=== PATIENT | female | born 1960 | race Caucasian/White ===

== ENCOUNTER 2024-10-31 12:52 | Emergency (ER) | payer SELFPAY ==
[2024-10-31] VITALS (7 sets, daily range): BP systolic 96–120; BP diastolic 55–67; PULSE 60–66; RESP 13–29; TEMP 36.8; O2SAT 96–100; BMI 18.8
--- NOTE | 2024-10-31 12:48 | ECG_ITS ---
APPROVED REPORT Exam: Resting ECG HR:55 bpm ECG Measurements Heart Rate 55 AXES AL 148 P 84 QRSd 89 QRS 83 QT 441 T 66 QTc 430 Conclusion SINUS BRADYCARDIA RIGHT ATRIAL ENLARGEMENT [0.3mV P-WAVE] LEFT ATRIAL ENLARGEMENT [-0.15mV P-WAVE IN V1/V2] POSSIBLE RIGHT VENTRICULAR CONDUCTION DELAY [RSR (QR) IN V1/V2] ABNORMAL ECG UNCONFIRMED REPORT Electronically signed by : Devon Camp, 11/01/2024 15:33:20
--- NOTE | 2024-10-31 12:55 | XR_ITS ---
PROCEDURE INFORMATION: Exam: XR Chest Exam date and time: 10/31/2024 1:08 PM Age: 64 years old Clinical indication: Pain; Chest pressure; Additional info: Chest pain, pre-syncopal episode TECHNIQUE: Imaging protocol: Radiologic exam of the chest. Views: 1 view. COMPARISON: No relevant prior studies available. FINDINGS: Lungs: No consolidation or lung nodules. Bilateral nipple shadows are suspected. Calcified granuloma in the left lower lung. Pleural spaces: No pleural effusion. No pneumothorax. Heart/Mediastinum: No abnormalities. No cardiomegaly. No pulmonary vascular congestion. Bones/joints: No fractures or bone lesions. IMPRESSION: 1. Bilateral nipple shadows are suspected. PA chest x-ray with nipple markers is suggested. 2. No other acute findings in the chest.
--- NOTE | 2024-10-31 13:02 | PC.NURSE ---
Blood glucose 203 at 1302
[2024-10-31 13:07] LABS: Basophils % 0.4 % (0.1-2.0); Eosinophils % 0.6 % (0.1-12.0); Hematocrit 40.2 % (37.0-47.0); Hemoglobin 13.5 g/dL (12.2-16.2); Lymphocytes # 0.9 K/mm3 (0.7-4.5); Lymphocytes % 13.2 % (10-50); Mean Corpuscular HGB Conc 33.6 g/dL (31.8-35.4); Mean Corpuscular Hemoglobin 31.2 pg (27.0-31.2); Mean Corpuscular Volume 92.8 fl (81-99); Mean Platelet Volume 11.5 fl (7.4-10.4); Monocytes # 0.4 K/mm3 (0.1-1.0); Monocytes % 6.6 % (1.7-9.3); Neutrophils # 5.3 K/mm3 (1.8-7.8); Neutrophils % 78.9 % (37.0-80.0); Platelet Count 121 K/mm3 (142-424); Red Blood Count 4.33 M/mm3 (4.20-5.40); White Blood Count 6.7 K/mm3 (4.8-10.8)
[2024-10-31 13:11] LABS: Chloride 104 mmol/L (98-107); Potassium 3.6 mmoL/L (3.5-5.1); Sodium 136 mmol/L (136-145)
[2024-10-31 13:14] LABS: Alanine Aminotransferase 38 U/L (12-78); Albumin/Globulin Ratio 1.8 (1.1-1.8); Alkaline Phosphatase 66 U/L (38-126); Anion Gap 6.6 mEq/L (5-15); Aspartate Amino Transferase 52 U/L (14-36); Bilirubin,Total 0.4 mg/dl (0.2-1.3); Blood Urea Nitrogen 26 mg/dl (7-17); Calcium 9.5 mg/dl (8.4-10.2); Carbon Dioxide 29 mmol/L (22.0-30.0); Creatinine Clearance Estimated 45 mL/min (50-200); Estimated Glomerular Filt Rate 72 ml/min (>60); GFR (African American) 87 ML/MIN (>60); Globulin 2.2 g/dL (1.3-3.2); Glucose 161 mg/dl (74-100); Magnesium 2.3 mg/dl (1.6-2.3); Total Protein,Serum 6.2 g/dl (6.3-8.2)
[2024-10-31 13:27] LABS: Troponin I < 0.01 ng/ml (0.00-0.034)
[2024-10-31 14:02] LABS: D-Dimer 0.83 ug/mL (0.0-0.5)
[2024-10-31 14:18] LABS: HIV Combo NEGATIVE (Negative)
[2024-10-31 15:58] LABS: Troponin I < 0.01 ng/ml (0.00-0.034)
--- NOTE | 2024-10-31 18:18 | ED_ITS ---
<Statement entered by Rj Camp MD - 11/01/24 15:27> I was consulted by the CHAYO, and we discussed the complexity of the problems being addressed. I approved the treatment and management plan for this patient's care in the emergency department, thus performing a substantive portion of the medical decision making. Rj Camp MD, CATY, FACEP Discharge Plan Disposition Patient Disposition: Home, Self-Care Condition: Good Prescriptions Prescriptions: No Action aspirin 81 mg Tablet 81 mg PO DAILY Referrals Follow up/Referrals: Mario Mir MD [Staff Physician] - See instructions Jorge L Pimentel MD [Primary Care Provider] - See instructions Activity Restrictions/Add. Instructions Additional Instructions/Restrictions: You were seen for chest pain. Please call cardiology to schedule an appointment for for further workup. You had some abnormal imaging around the nipple area. I would advise follow up with your PCP for additional imaging. Clinical Impressions Clinical Impression: Chest pain Instructions Patient Instructions: DI for Chest Pain Print Language Print Language: Kyr[place]z Discharge ED Provider: Rj Camp [facility] General Chief Complaint: Chest Pain Stated Complaint: chest pain Time Seen by Provider: 10/31/24 12:54 Mode of Arrival: Family Vehicle Source of Information: Patient and EMS Limitations: No Limitations Description of Symptoms (Recalled from ER Triage Doc. by RN): Pt c/o intermittent mid-sternal sharp chest pain and near syncopal episode while sitting during jehovah's witness this AM. Denies any significant PMH. No prior surgery. Denies any dizziness or light-headedness. EMS was called to see pt in route to ER. Per EMS pt's HR was 50s and no ST elevation was noted. FS 203. Pt is not a diabetic History of Present Illness HPI narrative: Patient presents complaining of central chest pressure that started around 1130 this morning. She reports that her pain has improved, lasting 10 to 15-minutes. Denies any shortness of breath, cough, nausea vomiting. Denies any fever. She reports that she was sitting at jehovah's witness at the onset of pain. complaint: chest pain Onset (ago): unknown (11:30) Duration: other (15 min) Activity at onset: during rest Pain location: substernal Severity: moderate Quality: other (pressure ) Pain radiation: none Relieving factors: nothing Exacerbating factors: nothing Context: recent travel Treatments prior to or on arrival for Cardiac Chest Pain: none Related Data Home Medications ?Medication ?Instructions ?Recorded ?Confirmed aspirin 81 mg tablet 81 mg PO DAILY 10/31/24 10/31/24 Allergies Allergy/AdvReac Type Severity Reaction Status Date / Time Penicillins Allergy Unknown Verified 10/31/24 12:55 allergy reaction [facility] Disclaimer: The information contained in this section may have been updated after the patient was seen, as this information can be updated by other users. Social History Smoking Status: Never smoker alcohol intake: never current occupational status: other Travel in the last 8 weeks: Inside the [place] ROS Obtained: Yes Systems reviewed as appropriate & no additional complaints except as documented Physical Exam General General appearance: alert and in no apparent distress Head Head exam: atraumatic and normocephalic Eye Eye exam: Present normal appearance and EOMI Chest Chest inspection: Present symmetric chest wall rise Respiratory Respiratory exam: Present normal lung sounds bilaterally; Absent wheezes or stridor Cardiovascular Cardiovascular exam: Present regular rate and normal rhythm; Absent systolic murmur Abdominal Exam Abdominal exam: Present soft; Absent distention or tenderness Neurological Exam Neurological exam: Present alert and oriented X3 Psychiatric Psychiatric exam: Present normal affect and normal mood Skin Skin exam: Present warm, dry and intact HEART Score HEART Score HEART Score assessment performed?: No History (anamnesis): Slightly suspicious ECG: Normal Age: 45-65 years Risk factors: No known risk factors Troponin: </= normal limit HEART Score: 1 Critical Care Critical Care Time Critical Care Time: No Medical Decision Making Kris Inquiry Pt receiving controlled substance: No Vital Signs Vital Signs: 10/31/24 12:53 10/31/24 13:00 10/31/24 13:15 Temperature 98.2 F Temperature Source Oral Pulse Rate 61 66 Pulse Rate [Right] 60 Respiratory Rate 16 18 29 H Blood Pressure 102/62 L 97/55 L Blood Pressure [Right Arm] 120/67 Blood Pressure Mean [Right Arm] 84 Blood Pressure Source Blood Pressure Source [Right Arm] Automatic Cuff Blood Pressure Position 02 Sat by Pulse Oximetry 99 99 100 Oxygen Delivery Method Room Air Room Air 10/31/24 14:00 10/31/24 14:30 10/31/24 15:00 Temperature Temperature Source Pulse Rate 63 62 60 Pulse Rate [Right] Respiratory Rate 16 16 13 Blood Pressure 96/62 L 101/65 L 108/63 L Blood Pressure [Right Arm] Blood Pressure Mean [Right Arm] Blood Pressure Source Blood Pressure Source [Right Arm] Blood Pressure Position 02 Sat by Pulse Oximetry 97 97 96 Oxygen Delivery Method Room Air Room Air Room Air 10/31/24 16:48 Temperature 98.2 F Temperature Source Oral Pulse Rate 63 Pulse Rate [Right] Respiratory Rate 16 Blood Pressure 114/66 Blood Pressure [Right Arm] Blood Pressure Mean [Right Arm] Blood Pressure Source Automatic Cuff Blood Pressure Source [Right Arm] Blood Pressure Position Sitting 02 Sat by Pulse Oximetry Oxygen Delivery Method Room Air Lab Data Labs: Lab Results 10/31/24 12:55: WBC 6.7, RBC 4.33, Hgb 13.5, Hct 40.2, MCV 92.8, MCH 31.2, MCHC 33.6, RDW 13.0, Plt Count 121 L, MPV 11.5 H, Neut % (Auto) 78.9, Lymph % (Auto) 13.2, [place] % (Auto) 6.6, Eos % (Auto) 0.6, Baso % (Auto) 0.4, Neut # (Auto) 5.3, Lymph # (Auto) 0.9, [place] # (Auto) 0.4, Eos # (Auto) 0.0, Baso # (Auto) 0.0, D- Dimer 0.83 H, Sodium 136, Potassium 3.6, Chloride 104, Carbon Dioxide 29, Anion Gap 6.6, BUN 26 H, Creatinine 0.80, Estimated Creat Clear 45, Estimated GFR 72, Est GFR ( Amer) 87, Glucose 161 H, Calcium 9.5, Magnesium 2.3, Total Bilirubin 0.4, AST 52 H, ALT 38, Alkaline Phosphatase 66, Troponin I < 0.01, T otal Protein 6.2 L, Albumin 4.0, Globulin 2.2, Albumin/Globulin Ratio 1.8, HIV Ag/Ab Combo Qual Negative 10/31/24 15:20: Troponin I < 0.01 10/31/24 12:55 10/31/24 12:55 Response Orders (Tests/Meds): ORDERS Category Date Time Status CXR --portable [XR chest portable] Stat Exams 10/31/24 12:55 Completed Complete Blood Count Auto Diff Stat Lab 10/31/24 12:55 Completed Comprehensive Metabolic Panel Stat Lab 10/31/24 12:55 Completed D-Dimer Stat Lab 10/31/24 12:55 Completed HIV Combo Stat Lab 10/31/24 12:55 Completed Hep C Ab with Reflex to RNA Stat Lab 10/31/24 12:55 Received Magnesium Stat Lab 10/31/24 12:55 Completed Troponin I Q3H Lab 10/31/24 15:20 Completed Troponin I Stat Lab 10/31/24 12:55 Completed MDM Narrative Medical Decision Narrative: In summary patient is a 64-year-old female who presents the emergency department for evaluation of chest. Patient is hemodynamically upon arrival, afebrile. Unremarkable physical exam. Differential diagnosis includes ACS, pulmonary embolism, pneumonia. Initial workup will be conducted with labs, D-dimer, chest x-ray. Initial workup reviewed by ar labs and chest x-ray are unremarkable, D-dimer negative per years criteria. Upon repeat evaluation patient continues to feel well. Given this patient is appropriate for discharge with follow-up with cardiology. Discussed nipple shadowing on chest x-ray and need for further imaging with her PCP. She is agreeable.
[2024-11-02 05:33] LABS: HCV Ab Non Reactive (Non Reactive)
== END 2024-10-31 16:48 | disposition home or self-care (01) ==
PROVIDERS: Physician Assistant; Emergency Provider Student in an Organized Health Care Education/Training Program; PCP Internal Medicine Adolescent Medicine
DX: R07.9 Chest pain, unspecified (principal); R55 Syncope and collapse
CPT/HCPCS: 71045; 80053; 83735; 84484; 85025; 85378; 86803; 87389; 93005; 99284